=== PATIENT | male | born 1975 | race Caucasian/White ===

== ENCOUNTER 2023-02-02 13:40 | Emergency (ER) | payer BC, SELFPAY ==
--- NOTE | 2023-02-02 13:45 | DI.RAD_ITS ---
Exam(s) XR ELBOW LT COMPLETE EXAM: XR ELBOW LT COMPLETE CLINICAL HISTORY: left elbow swelling. TECHNIQUE: 2D digital imaging was performed. COMPARISON: No exams were available for comparison FINDINGS: 3 views There is hypodense line in the coronoid process of the proximal ulna as seen best on the lateral view and consistent with incompletely healed fracture. No other fracture lines identified. Radial head and neck appear unremarkable. No osseous lesions. Slight elevation of the anterior fat pad. No large joint effusion. IMPRESSION: Incompletely healed fracture of the coronoid process of the proximal ulna. DATA REPOSITORY: RADIATION DOSE DELIVERED:
[2023-02-02 13:46] VITALS: BP 118/72; PULSE 73; RESP 18; TEMP 37.1; O2SAT 97
--- NOTE | 2023-02-02 14:59 | DI.VRAD_ITS ---
PROCEDURE INFORMATION: Exam: XR Left Elbow Exam date and time: 02/02/2023 2:47 PM Age: 47 years old Clinical indication: Other: Left elbow swelling TECHNIQUE: Imaging protocol: Radiologic exam of the left elbow. Views: 3 or more views. COMPARISON: No relevant prior studies available. FINDINGS: Bones/joints: Lucency in the coronoid process consistent with unhealed fracture. Seen best on the lateral.. Anterior joint effusion Soft tissues: Soft tissue swelling of the elbow IMPRESSION: Lucency in the coronoid process consistent with unhealed fracture. Seen best on the lateral.. Dictated and Authenticated by: Niurka Elder MD. Ordering:PRECIOUS Whitaker MD
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
--- NOTE | 2023-02-02 15:21 | NUR.NOTE ---
Nursing Note: Referral given to Care Management for [facility]/elbow fracture/within the next week.
[2023-02-02 15:32] VITALS: PULSE 70; RESP 16; O2SAT 98
--- NOTE | 2023-02-04 11:29 | CMACTNOTE_ITS ---
Date of service: 02/04/23 Time of Service: 11:29 Care Management Activity Note Activity Note Text Activity Note Text: Ny is seen in the ED for a left elbow fracture. At the request of ED provider, CM coordinates a referral to [facility] [[email or web address] Orthopedics (tel. [phone]/fax [phone]) to assist patient in obtaining an appointment for further evaluation and treatment. He has [employer] for insurance.
== END 2023-02-02 15:33 | disposition home or self-care (01) ==
PROVIDERS: Emergency Provider Physician Assistant
DX: S42.402A Unspecified fracture of lower end of left humerus, initial encounter for closed fracture (principal); V19.3XXA Pedal cyclist (driver) (passenger) injured in unspecified nontraffic accident, initial encounter
CPT/HCPCS: 29105; 99283; 73080